=== PATIENT | female | born 1955 | race Caucasian/White ===

== ENCOUNTER 2016-09-21 22:35 | Inpatient (IN) | payer OTHER ==
[~2016-09-21] VITALS: Ht 160 cm; Wt 67.0 kg
[2016-09-21 23:28] LABS: HEMOGLOBIN 10.4 g/dL (11.7-16.4)
[2016-09-21] MEDS ORDERED: SODIUM CHLORIDE 0.9% 1,000ML IVBOLUS ONE (23:30)
[2016-09-21 23:41] LABS: ASPARTATE AMINO TRANSFERASE 13 U/L (15-37); BLOOD UREA NITROGEN 14 mg/dL (7-18)
[2016-09-21] MEDS ORDERED: BUSP10TA PO (23:41)
[2016-09-21] MEDS ORDERED: LIDO700A30 DIALYCATH (23:41)
[2016-09-21] MEDS ORDERED: ATEN25TA PO (23:41)
[2016-09-21] MEDS ORDERED: ESCI20TA10 PO (23:41)
[2016-09-21] MEDS ORDERED: BUPR1FIL3 SL (23:41)
[2016-09-21] MEDS ORDERED: ALBU90AE INH (23:41)
[2016-09-21] MEDS ORDERED: IBUP800T PO (23:41)
[2016-09-21] MEDS ORDERED: BUPR300T49 PO (23:41)
[2016-09-21] MEDS ORDERED: BECL8.7A5 INH (23:41)
[2016-09-22] MEDS ORDERED: PIPERACILLIN/TAZO/PMX 3.375GM 50 ML ONE (00:26)
[2016-09-22] MEDS ORDERED: PIPERACILLIN/TAZO/PMX 3.375GM 50 ML IVPB ONE (00:30)
[2016-09-22] MEDS ORDERED: SODIUM CHLORIDE 0.9% 1,000ML IVBOLUS ONE (00:30)
[2016-09-22] MEDS ORDERED: VANCOMYCIN PER PHARMACY IV ONE (00:30)
[2016-09-22] MEDS ORDERED: VANCOMYCIN PMX 1GM/200ML 200 ML IV ONE (00:30)
[2016-09-22] MEDS ORDERED: OMNIPAQUE 350 MG/ML, 100ML BOTTLE ONE (00:57)
[2016-09-22 03:43] VITALS: BP 107/57
[2016-09-22] MEDS ORDERED: VANCOMYCIN PER PHARMACY MC PRN (05:00)
[2016-09-22] MEDS ORDERED: POTASSIUM CHLORIDE 40 MEQ in SODIUM CHLORIDE 0.9% 500 ML IV ONE (05:00)
[2016-09-22] MEDS ORDERED: PHARMACOKINETIC CONSULTATION MC ONE (05:30)
[2016-09-22] MEDS ORDERED: ONDANSETRON 2MG/ML, 2ML IVP PRN (05:30)
[2016-09-22] MEDS ORDERED: PHARMACOKINETIC MONITORING MC PRN (05:30)
[2016-09-22] MEDS ORDERED: ACETAMINOPHEN 325 MG TABLET PO PRN (05:30)
[2016-09-22] MEDS ORDERED: ATENOLOL 25 MG TABLET PO PRN (05:30)
[2016-09-22] MEDS ORDERED: ALBUTEROL SULFATE 2.5 MG/3 ML NPPB PRN (06:00)
[2016-09-22 06:30] VITALS: BP 98/56
[2016-09-22 07:12] LABS: HEMOGLOBIN 9.1 g/dL (11.7-16.4)
[2016-09-22 07:24] LABS: ASPARTATE AMINO TRANSFERASE 12 U/L (15-37); BLOOD UREA NITROGEN 11 mg/dL (7-18)
[2016-09-22] MEDS ORDERED: LIDODERM 5% PATCH TD SCH (08:00)
[2016-09-22] MEDS ORDERED: BUPROPION HCL 450 MG HOMEMEDPO SCH (09:00)
[2016-09-22] MEDS: TEMPLATE NON-FORMULARY MED. (Escitalopram Oxalate** (Lexapro**) 20 MG) HOMEMEDPO SCH (09:00)
[2016-09-22 09:52] LABS: DAU SCREEN DISCLAIMER
[2016-09-22] MEDS: SODIUM CHLORIDE 0.9% 1,000 ML IV SCH (10:57)
[2016-09-22] MEDS: PIPERACILLIN/TAZO/PMX 3.375GM 50 ML IV SCH ×3 (11:03→22:05)
[2016-09-22] MEDS: FLUTICASONE FUROATE 200MCG/INH INH SCH (11:20)
[2016-09-22] MEDS: BUSPIRONE 10 MG TABLET PO SCH (11:20)
[2016-09-22] MEDS ORDERED: BUPROPION MC SCH (12:00)
[2016-09-22] MEDS: VANCOMYCIN 1,200 MG in SODIUM CHLORIDE 0.9% 250 ML IV SCH (12:25)
[2016-09-22 13:09] VITALS: BP 103/54
[2016-09-22 13:28] LABS: BLOOD UREA NITROGEN 8 mg/dL (7-18)
[2016-09-22] MEDS: BUPROPION 75 MG TABLET PO SCH ×2 (16:00→21:00)
[2016-09-22 19:58] VITALS: BP 108/56
[2016-09-22] MEDS ORDERED: BUPROPION SR 150 MG TABLET PO SCH (21:00)
[2016-09-22] MEDS: ENOXAPARIN 40 MG/0.4 ML SQ SCH (21:00)
[2016-09-22] MEDS ORDERED: ZOLPIDEM 10MG TABLET PO ONE (22:30)
[2016-09-23 02:33] VITALS: BP 95/64
[2016-09-23] MEDS: PIPERACILLIN/TAZO/PMX 3.375GM 50 ML IV SCH ×4 (04:01→22:07)
[2016-09-23 05:09] LABS: HEMOGLOBIN 8.5 g/dL (11.7-16.4)
[2016-09-23] MEDS: VANCOMYCIN 1,200 MG in SODIUM CHLORIDE 0.9% 250 ML IV SCH (05:09)
[2016-09-23 05:16] LABS: BLOOD UREA NITROGEN 6 mg/dL (7-18)
[2016-09-23 05:20] LABS: ASPARTATE AMINO TRANSFERASE 13 U/L (15-37)
[2016-09-23 06:05] VITALS: BP 108/67
[2016-09-23] MEDS ORDERED: HEPARIN 1,000 UNITS/ML, 10ML ONE (06:14)
[2016-09-23] MEDS ORDERED: BUPIVACAINE/PF-EPI 0.5% 1:200K ONE (06:14)
[2016-09-23] MEDS ORDERED: TALC 30 GM AERO.PWD INTRAPL ONE (06:14)
[2016-09-23] MEDS ORDERED: FENTANYL PF 250 MCG/5ML ONE (08:05)
[2016-09-23] MEDS ORDERED: CEFAZOLIN 1,000 MG ONE (08:05)
[2016-09-23] MEDS ORDERED: ROCURONIUM 10 MG/ML ONE (08:05)
[2016-09-23] MEDS ORDERED: PROPOFOL 10 MG/ML, 20ML ONE (08:05)
[2016-09-23] MEDS ORDERED: MIDAZOLAM 1 MG/ML, 2ML ONE (08:05)
[2016-09-23] MEDS: TEMPLATE NON-FORMULARY MED. (Escitalopram Oxalate** (Lexapro**) 20 MG) HOMEMEDPO SCH (09:00)
[2016-09-23] MEDS: BUSPIRONE 10 MG TABLET PO SCH (09:00)
[2016-09-23] MEDS: BUPROPION 75 MG TABLET PO SCH ×3 (09:00→21:07)
[2016-09-23] MEDS: FLUTICASONE FUROATE 200MCG/INH INH SCH (09:00)
[2016-09-23] MEDS ORDERED: ALBUTEROL SULFATE 2.5 MG/3 ML NPPB PRN (09:30)
[2016-09-23] MEDS ORDERED: OXYcodone 5 MG/5 ML ORAL.SOL UDC PO PRN (09:30)
[2016-09-23] MEDS ORDERED: ONDANSETRON 2MG/ML, 2ML IVPush PRN (09:30)
[2016-09-23] MEDS ORDERED: MIDAZOLAM 1 MG/ML, 2ML IV PRN (09:30)
[2016-09-23] MEDS ORDERED: MEPERIDINE/PF 25MG/0.5ML IVPush PRN (09:30)
[2016-09-23] MEDS ORDERED: PROMETHAZINE 25 MG/ML, 1ML IV PRN (09:30)
[2016-09-23] MEDS ORDERED: HYDROmorphone 2 MG/ML, 1ML ONE ×2 (09:36→10:29)
[2016-09-23] MEDS: SODIUM CHLORIDE 0.9% 1,000 ML IV SCH ×2 (10:00)
[2016-09-23] MEDS ORDERED: OXYcodone 5 MG/5 ML ORAL.SOL UDC ONE (10:00)
[2016-09-23] MEDS ORDERED: HYDROmorphone PCA 30 MG/30 ML ONE (10:00)
[2016-09-23] MEDS ORDERED: HYDROmorphone PCA 30 MG/30 ML IV PRN ×2 (10:30→11:00)
[2016-09-23] MEDS ORDERED: FENTANYL PF 100 MCG/2ML ONE (10:30)
[2016-09-23] MEDS: FENTANYL PF 100 MCG/2ML IV PRN ×2 (10:35→10:41)
[2016-09-23] MEDS: HYDROmorphone 1 MG/ML, 1ML IV PRN ×4 (10:41→11:44)
[2016-09-23] MEDS ORDERED: ZOLPIDEM 5MG TABLET ONE (21:03)
[2016-09-23] MEDS: ENOXAPARIN 40 MG/0.4 ML SQ SCH (21:06)
[2016-09-23] MEDS: ZOLPIDEM 10MG TABLET PO PRN (21:08)
[2016-09-24] MEDS: VANCOMYCIN 1,200 MG in SODIUM CHLORIDE 0.9% 250 ML IV SCH ×2 (00:28→18:00)
[2016-09-24] MEDS: PIPERACILLIN/TAZO/PMX 3.375GM 50 ML IV SCH ×4 (03:57→22:49)
[2016-09-24 04:00] VITALS: BP 122/56
[2016-09-24 04:08] LABS: BLOOD UREA NITROGEN 5 mg/dL (7-18)
[2016-09-24 04:12] LABS: ASPARTATE AMINO TRANSFERASE 18 U/L (15-37); DIFF TOTAL CELLS COUNTED 100 CELL DIFF
[2016-09-24 04:14] LABS: ANISOCYTOSIS 1+; HYPOCHROMIA 1+; POLYCHROMASIA 1+; VERIFY COUNTS? YES
[2016-09-24] MEDS: SODIUM CHLORIDE 0.9% 1,000 ML IV SCH (05:24)
[2016-09-24] MEDS: BUPROPION 75 MG TABLET PO SCH ×3 (09:17→20:45)
[2016-09-24] MEDS: IBUPROFEN 800 MG TABLET PO SCH (09:17)
[2016-09-24] MEDS: FLUTICASONE FUROATE 200MCG/INH INH SCH (09:17)
[2016-09-24] MEDS: BUSPIRONE 10 MG TABLET PO SCH (09:17)
[2016-09-24] MEDS: TEMPLATE NON-FORMULARY MED. (Escitalopram Oxalate** (Lexapro**) 20 MG) HOMEMEDPO SCH (09:18)
[2016-09-24] MEDS: HYDROcodone/APAP 10/325 MG TABLET PO PRN ×3 (10:15→20:46)
[2016-09-24] MEDS ORDERED: HYDROmorphone 1 MG/ML, 1ML IM PRN (12:30)
[2016-09-24 13:35] VITALS: BP 97/60
[2016-09-24 18:49] VITALS: BP 87/52
[2016-09-24 19:41] VITALS: BP 98/59
[2016-09-24] MEDS: ENOXAPARIN 40 MG/0.4 ML SQ SCH (20:46)
[2016-09-24] MEDS: ZOLPIDEM 10MG TABLET PO PRN (22:49)
[2016-09-25 00:15] VITALS: BP 116/64
[2016-09-25 03:44] VITALS: BP 109/63
[2016-09-25] MEDS: PIPERACILLIN/TAZO/PMX 3.375GM 50 ML IV SCH ×4 (04:00→22:39)
[2016-09-25 05:57] LABS: BLOOD UREA NITROGEN 6 mg/dL (7-18)
[2016-09-25 06:00] LABS: ASPARTATE AMINO TRANSFERASE 13 U/L (15-37)
[2016-09-25 06:07] LABS: HEMOGLOBIN 7.3 g/dL (11.7-16.4)
[2016-09-25 07:06] VITALS: BP 119/67
[2016-09-25 07:32] LABS: DIFF TOTAL CELLS COUNTED 100 CELL DIFF
[2016-09-25 07:37] LABS: ANISOCYTOSIS 1+; VERIFY COUNTS? YES
[2016-09-25 07:50] LABS: TOTAL IRON BINDING CAPACITY 75 mcg/dL (250-450)
[2016-09-25] MEDS: BUPROPION 75 MG TABLET PO SCH ×3 (08:47→21:23)
[2016-09-25] MEDS: IBUPROFEN 800 MG TABLET PO SCH (08:47)
[2016-09-25] MEDS: BUSPIRONE 10 MG TABLET PO SCH (08:47)
[2016-09-25] MEDS: TEMPLATE NON-FORMULARY MED. (Escitalopram Oxalate** (Lexapro**) 20 MG) HOMEMEDPO SCH (08:48)
[2016-09-25] MEDS: FLUTICASONE FUROATE 200MCG/INH INH SCH (08:48)
[2016-09-25] MEDS: VANCOMYCIN 1,200 MG in SODIUM CHLORIDE 0.9% 250 ML IV SCH (12:09)
[2016-09-25 14:00] VITALS: BP 107/66
[2016-09-25] MEDS ORDERED: SODIUM CHLORIDE 0.9% 1,000 ML IV SCH (15:30)
[2016-09-25] MEDS ORDERED: IRON DEXTRAN COMPLEX 25 MG in SODIUM CHLORIDE 0.9% 50 ML IV ONE (15:30)
[2016-09-25] MEDS ORDERED: IRON DEXTRAN COMPLEX 1,350 MG in SODIUM CHLORIDE 0.9% 250 ML IV ONE (16:00)
[2016-09-25] MEDS ORDERED: EPINEPHRINE 1 MG/ML, 1ML ONE (17:41)
[2016-09-25] MEDS: POLYETHYLENE GLYCOL 17 GM PACKET PO PRN (17:44)
[2016-09-25] MEDS: HYDROcodone/APAP 10/325 MG TABLET PO PRN ×2 (18:35→22:39)
[2016-09-25 18:41] VITALS: BP 120/67
[2016-09-25] MEDS: DOCUSATE 100 MG CAPSULE PO SCH (21:24)
[2016-09-25] MEDS: ENOXAPARIN 40 MG/0.4 ML SQ SCH (22:12)
[2016-09-26] VITALS (7 sets, daily range): BP systolic 113–127; BP diastolic 62–72
[2016-09-26] MEDS: HYDROcodone/APAP 10/325 MG TABLET PO PRN ×5 (02:35→23:46)
[2016-09-26] MEDS: PIPERACILLIN/TAZO/PMX 3.375GM 50 ML IV SCH ×4 (04:11→22:35)
[2016-09-26] MEDS: VANCOMYCIN 1,300 MG in SODIUM CHLORIDE 0.9% 250 ML IV SCH ×2 (05:00→23:46)
[2016-09-26 05:21] LABS: HEMOGLOBIN 7.2 g/dL (11.7-16.4)
[2016-09-26 05:28] LABS: BLOOD UREA NITROGEN 4 mg/dL (7-18)
[2016-09-26] MEDS: BISACODYL 10 MG SUPP PR PRN (05:31)
[2016-09-26 05:43] LABS: ASPARTATE AMINO TRANSFERASE 12 U/L (15-37)
[2016-09-26] MEDS: POTASSIUM CHLORIDE 20 MEQ TAB.ER.PRT PO SCH ×2 (10:28→16:28)
[2016-09-26] MEDS: IBUPROFEN 800 MG TABLET PO SCH (10:30)
[2016-09-26] MEDS: BUPROPION 75 MG TABLET PO SCH ×3 (10:30→20:50)
[2016-09-26] MEDS: BUSPIRONE 10 MG TABLET PO SCH (10:31)
[2016-09-26] MEDS: DOCUSATE 100 MG CAPSULE PO SCH ×2 (10:32→20:50)
[2016-09-26] MEDS: TEMPLATE NON-FORMULARY MED. (Escitalopram Oxalate** (Lexapro**) 20 MG) HOMEMEDPO SCH (10:33)
[2016-09-26] MEDS: FLUTICASONE FUROATE 200MCG/INH INH SCH (10:34)
[2016-09-26] MEDS: ENOXAPARIN 40 MG/0.4 ML SQ SCH (20:51)
[2016-09-26] MEDS: POLYETHYLENE GLYCOL 17 GM PACKET PO PRN (20:51)
[2016-09-26] MEDS: DIPHENHYDRAMINE 50 MG CAPSULE PO PRN (23:40)
[2016-09-27 01:58] VITALS: BP 114/63
[2016-09-27 04:36] LABS: HEMOGLOBIN 8.9 g/dL (11.7-16.4)
[2016-09-27] MEDS: PIPERACILLIN/TAZO/PMX 3.375GM 50 ML IV SCH ×4 (04:45→21:35)
[2016-09-27 04:48] LABS: BLOOD UREA NITROGEN 5 mg/dL (7-18)
[2016-09-27] MEDS: HYDROcodone/APAP 10/325 MG TABLET PO PRN ×5 (05:09→21:35)
[2016-09-27 07:20] VITALS: BP 145/72
[2016-09-27] MEDS: BUSPIRONE 10 MG TABLET PO SCH (08:13)
[2016-09-27] MEDS: FLUTICASONE FUROATE 200MCG/INH INH SCH (08:13)
[2016-09-27] MEDS: IBUPROFEN 800 MG TABLET PO SCH (08:14)
[2016-09-27] MEDS: BUPROPION 75 MG TABLET PO SCH ×3 (08:14→21:00)
[2016-09-27] MEDS: DOCUSATE 100 MG CAPSULE PO SCH ×2 (08:14→21:35)
[2016-09-27] MEDS: TEMPLATE NON-FORMULARY MED. (Escitalopram Oxalate** (Lexapro**) 20 MG) HOMEMEDPO SCH (08:15)
[2016-09-27 13:20] VITALS: BP 126/70
[2016-09-27 18:32] VITALS: BP 124/69
[2016-09-27] MEDS: VANCOMYCIN 1,300 MG in SODIUM CHLORIDE 0.9% 250 ML IV SCH (19:00)
[2016-09-27] MEDS: ENOXAPARIN 40 MG/0.4 ML SQ SCH (21:35)
[2016-09-27] MEDS: DIPHENHYDRAMINE 50 MG CAPSULE PO PRN (23:12)
[2016-09-28 00:37] VITALS: BP 135/74
[2016-09-28] MEDS: PIPERACILLIN/TAZO/PMX 3.375GM 50 ML IV SCH ×2 (03:33→10:24)
[2016-09-28] MEDS: HYDROcodone/APAP 10/325 MG TABLET PO PRN ×5 (05:06→22:24)
[2016-09-28] MEDS: BISACODYL 10 MG SUPP PR PRN (05:06)
[2016-09-28 06:01] LABS: HEMOGLOBIN 8.7 g/dL (11.7-16.4)
[2016-09-28 06:13] LABS: BLOOD UREA NITROGEN 4 mg/dL (7-18)
[2016-09-28 06:47] VITALS: BP 136/71
[2016-09-28] MEDS: TEMPLATE NON-FORMULARY MED. (Escitalopram Oxalate** (Lexapro**) 20 MG) HOMEMEDPO SCH (09:00)
[2016-09-28] MEDS: IBUPROFEN 800 MG TABLET PO SCH (09:00)
[2016-09-28] MEDS: BUPROPION 75 MG TABLET PO SCH ×3 (09:00→20:30)
[2016-09-28] MEDS: DOCUSATE 100 MG CAPSULE PO SCH ×2 (09:00→20:30)
[2016-09-28] MEDS ORDERED: IBUPROFEN 600 MG TABLET ONE (09:38)
[2016-09-28] MEDS ORDERED: IBUPROFEN 200 MG TABLET ONE (09:38)
[2016-09-28] MEDS: BUSPIRONE 10 MG TABLET PO SCH (09:42)
[2016-09-28] MEDS: FLUTICASONE FUROATE 200MCG/INH INH SCH (09:43)
[2016-09-28] MEDS: POTASSIUM CHLORIDE 20 MEQ TAB.ER.PRT PO SCH ×2 (12:42→18:11)
[2016-09-28 14:09] VITALS: BP 131/75
[2016-09-28] MEDS: CEFTRIAXONE PMX 2GM/50ML 50 ML IV SCH (16:06)
[2016-09-28 19:02] VITALS: BP 126/72
[2016-09-28] MEDS: ENOXAPARIN 40 MG/0.4 ML SQ SCH (20:30)
[2016-09-28] MEDS: DIPHENHYDRAMINE 50 MG CAPSULE PO PRN (23:45)
[2016-09-29 00:26] VITALS: BP 134/78
[2016-09-29] MEDS: HYDROcodone/APAP 10/325 MG TABLET PO PRN ×5 (05:02→21:30)
[2016-09-29 05:47] LABS: HEMOGLOBIN 8.7 g/dL (11.7-16.4)
[2016-09-29 06:02] LABS: ASPARTATE AMINO TRANSFERASE 15 U/L (15-37); BLOOD UREA NITROGEN 5 mg/dL (7-18)
[2016-09-29 06:59] VITALS: BP 135/71
[2016-09-29] MEDS: IBUPROFEN 800 MG TABLET PO SCH (09:17)
[2016-09-29] MEDS: BUPROPION 75 MG TABLET PO SCH ×3 (09:17→20:19)
[2016-09-29] MEDS: POTASSIUM CHLORIDE 20 MEQ TAB.ER.PRT PO SCH (09:17)
[2016-09-29] MEDS: DOCUSATE 100 MG CAPSULE PO SCH ×2 (09:17→20:19)
[2016-09-29] MEDS: BUSPIRONE 10 MG TABLET PO SCH (09:17)
[2016-09-29] MEDS: FLUTICASONE FUROATE 200MCG/INH INH SCH (09:23)
[2016-09-29] MEDS: TEMPLATE NON-FORMULARY MED. (Escitalopram Oxalate** (Lexapro**) 20 MG) HOMEMEDPO SCH (09:24)
[2016-09-29 13:23] VITALS: BP 126/72
[2016-09-29] MEDS: CEFTRIAXONE PMX 2GM/50ML 50 ML IV SCH (15:01)
[2016-09-29] MEDS: SODIUM CHLORIDE FLUSH 10ML SYR IVF SCH (17:22)
[2016-09-29 19:39] VITALS: BP 133/75
[2016-09-29] MEDS: ENOXAPARIN 40 MG/0.4 ML SQ SCH (20:19)
[2016-09-29] MEDS: DIPHENHYDRAMINE 50 MG CAPSULE PO PRN (23:22)
[2016-09-30 01:51] VITALS: BP 127/65
[2016-09-30] MEDS ORDERED: OMNIPAQUE 350 MG/ML, 100ML BOTTLE ONE (03:36)
[2016-09-30] MEDS: HYDROcodone/APAP 10/325 MG TABLET PO PRN ×4 (05:14→23:29)
[2016-09-30 05:19] LABS: HEMOGLOBIN 8.8 g/dL (11.7-16.4)
[2016-09-30 05:48] LABS: BLOOD UREA NITROGEN 7 mg/dL (7-18)
[2016-09-30 07:26] VITALS: BP 132/70
[2016-09-30] MEDS: FLUTICASONE FUROATE 200MCG/INH INH SCH ×2 (10:18→23:30)
[2016-09-30] MEDS: IBUPROFEN 800 MG TABLET PO SCH (10:19)
[2016-09-30] MEDS: BUSPIRONE 10 MG TABLET PO SCH (10:19)
[2016-09-30] MEDS: DOCUSATE 100 MG CAPSULE PO SCH ×2 (10:19→20:58)
[2016-09-30] MEDS: BUPROPION 75 MG TABLET PO SCH ×3 (10:19→20:58)
[2016-09-30] MEDS: SODIUM CHLORIDE FLUSH 10ML SYR IVF SCH ×2 (10:20→23:32)
[2016-09-30] MEDS: POTASSIUM CHLORIDE 20 MEQ TAB.ER.PRT PO SCH ×3 (10:20→20:58)
[2016-09-30] MEDS: TEMPLATE NON-FORMULARY MED. (Escitalopram Oxalate** (Lexapro**) 20 MG) HOMEMEDPO SCH (10:20)
[2016-09-30 12:31] LABS: HEMOGLOBIN 9.1 g/dL (11.7-16.4)
[2016-09-30 12:41] LABS: ASPARTATE AMINO TRANSFERASE 17 U/L (15-37); BLOOD UREA NITROGEN 5 mg/dL (7-18)
[2016-09-30 13:24] VITALS: BP 118/71
[2016-09-30] MEDS: CEFTRIAXONE PMX 2GM/50ML 50 ML IV SCH (15:04)
[2016-09-30] MEDS ORDERED: CYCLOBENZAPRINE 10 MG TABLET PO PRN (17:00)
[2016-09-30 19:11] VITALS: BP 137/72
[2016-09-30] MEDS: ENOXAPARIN 40 MG/0.4 ML SQ SCH (20:58)
[2016-09-30] MEDS: DIPHENHYDRAMINE 50 MG CAPSULE PO PRN (23:29)
[2016-10-01 02:04] VITALS: BP 115/57
[2016-10-01] MEDS: HYDROcodone/APAP 10/325 MG TABLET PO PRN ×5 (03:29→20:41)
[2016-10-01 05:41] LABS: HEMOGLOBIN 9.2 g/dL (11.7-16.4)
[2016-10-01 06:06] LABS: BLOOD UREA NITROGEN 7 mg/dL (7-18)
[2016-10-01 07:47] VITALS: BP 138/73
[2016-10-01] MEDS: DOCUSATE 100 MG CAPSULE PO SCH ×2 (09:00→21:00)
[2016-10-01] MEDS: FLUTICASONE FUROATE 200MCG/INH INH SCH (09:28)
[2016-10-01] MEDS: POTASSIUM CHLORIDE 20 MEQ TAB.ER.PRT PO SCH (09:28)
[2016-10-01] MEDS: TEMPLATE NON-FORMULARY MED. (Escitalopram Oxalate** (Lexapro**) 20 MG) HOMEMEDPO SCH (09:28)
[2016-10-01] MEDS: IBUPROFEN 800 MG TABLET PO SCH (09:29)
[2016-10-01] MEDS: BUPROPION 75 MG TABLET PO SCH ×3 (09:30→20:01)
[2016-10-01] MEDS: BUSPIRONE 10 MG TABLET PO SCH (09:30)
[2016-10-01] MEDS: SODIUM CHLORIDE FLUSH 10ML SYR IVF SCH ×2 (09:36→16:35)
[2016-10-01 13:48] VITALS: BP 145/74
[2016-10-01] MEDS: CEFTRIAXONE PMX 2GM/50ML 50 ML IV SCH (15:52)
[2016-10-01] MEDS: ENOXAPARIN 40 MG/0.4 ML SQ SCH (20:01)
[2016-10-01 20:02] VITALS: BP 139/72
[2016-10-01] MEDS: ZOLPIDEM 10MG TABLET PO PRN (23:30)
[2016-10-02 04:00] VITALS: BP 149/78
[2016-10-02] MEDS: HYDROcodone/APAP 10/325 MG TABLET PO PRN ×4 (04:27→16:35)
[2016-10-02 04:41] LABS: HEMOGLOBIN 9.3 g/dL (11.7-16.4)
[2016-10-02 04:54] LABS: BLOOD UREA NITROGEN 7 mg/dL (7-18)
[2016-10-02 07:00] VITALS: BP 132/58
[2016-10-02] MEDS ORDERED: POTASSIUM CHLORIDE 20 MEQ TAB.ER.PRT PO SCH (08:00)
[2016-10-02] MEDS: BUPROPION 75 MG TABLET PO SCH ×2 (08:33→16:36)
[2016-10-02] MEDS: BUSPIRONE 10 MG TABLET PO SCH (08:33)
[2016-10-02] MEDS: FLUTICASONE FUROATE 200MCG/INH INH SCH (08:33)
[2016-10-02] MEDS: IBUPROFEN 800 MG TABLET PO SCH (08:33)
[2016-10-02] MEDS: DOCUSATE 100 MG CAPSULE PO SCH ×2 (08:33→08:35)
[2016-10-02] MEDS: TEMPLATE NON-FORMULARY MED. (Escitalopram Oxalate** (Lexapro**) 20 MG) HOMEMEDPO SCH (08:34)
[2016-10-02 13:40] VITALS: BP 126/66
[2016-10-02] MEDS ORDERED: POTA20TA14 PO (14:36)
[2016-10-02] MEDS ORDERED: HYDR-3307 PO (14:36)
[2016-10-02] MEDS ORDERED: CEFT1FRO2 IV (14:36)
[2016-10-02] MEDS: CEFTRIAXONE PMX 2GM/50ML 50 ML IV SCH (14:43)
[2016-10-02] MEDS: SODIUM CHLORIDE FLUSH 10ML SYR IVF SCH (15:30)
[2016-10-02 16:21] VITALS: BP 148/84
== END 2016-10-02 16:53 | disposition home or self-care (01) | DRG 853 ==
LOC: ED 23:59 → EDIP 09-22 02:32 → 4WST 09-22 03:34 → CCU 09-23 11:59 → 4NOR 09-24 12:45
PROVIDERS: ADMIT Internal Medicine; ATTEND Family Medicine
PROC: 0PB10ZZ Excision of 1 to 2 Ribs, Open Approach (ICD-10-PCS; 2016-09-23)
PROC: 30233N1 Transfusion of Nonautologous Red Blood Cells into Peripheral Vein, Percutaneous Approach (ICD-10-PCS; 2016-09-23)
PROC: 0BDN0ZZ Extraction of Right Pleura, Open Approach (ICD-10-PCS; principal; 2016-09-23 08:00)
PROC: 02HV33Z Insertion of Infusion Device into Superior Vena Cava, Percutaneous Approach (ICD-10-PCS; 2016-09-28)
PROC: B548ZZA Ultrasonography of Superior Vena Cava, Guidance (ICD-10-PCS; 2016-09-28)
DX: A41.9 Sepsis, unspecified organism (principal); J86.9 Pyothorax without fistula; G93.41 Metabolic encephalopathy; E43 Unspecified severe protein-calorie malnutrition; J18.9 Pneumonia, unspecified organism; E22.2 Syndrome of inappropriate secretion of antidiuretic hormone; F10.231 Alcohol dependence with withdrawal delirium; Z99.11 Dependence on respirator [ventilator] status; E87.6 Hypokalemia; D50.9 Iron deficiency anemia, unspecified; D63.8 Anemia in other chronic diseases classified elsewhere; D75.89 Other specified diseases of blood and blood-forming organs; F32.9 Major depressive disorder, single episode, unspecified; G89.4 Chronic pain syndrome; I10 Essential (primary) hypertension; Z68.26 Body mass index [BMI] 26.0-26.9, adult; I25.10 Atherosclerotic heart disease of native coronary artery without angina pectoris; K04.7 Periapical abscess without sinus; Z51.5 Encounter for palliative care
CPT/HCPCS: 36415; 36569; 70487; 71010; 71270; 76937; 77001; 80048; 80053; 80202; 80307; 82330; 82803; 82947; 83540; 83550; 83605; 83735; 84100; 84132; 84145; 84295; 85014; 85025; 85610; 85651; 86140; 86850; 86900; 86923; 87040; 87070; 87075; 87081; 87181; 87205; 87324; 87493; 93005; 93306; 96365; 96366; 96368; C1729; J0690; J0696; J1170; J1644; J1650; J1750; J2250; J2543; J2704; J3010; J3370; J3480; Q9967; C1751; J7030; J7040; J7050; P9016

== ENCOUNTER → 2016-11-29 | Outpatient (CLI) | payer SELFPAY ==
[~2016-11-29] MED LIST: ALBU90AE INH; ATEN25TA PO; BECL8.7A5 INH; BUPR1FIL3 SL; BUPR300T49 PO; BUSP10TA PO; CEFT1FRO2 IV; ESCI20TA10 PO; HYDR-3307 PO; IBUP800T PO; LIDO700A30 DIALYCATH; OMNIPAQUE 350 MG/ML, 75ML BOTTLE ONE; POTA20TA14 PO
== END | disposition home or self-care (01) ==
LOC: CFH 10:07
PROVIDERS: ATTEND Internal Medicine Infectious Disease
DX: J98.11 Atelectasis (principal); J43.9 Emphysema, unspecified
CPT/HCPCS: 71260; Q9967